=== PATIENT | female | born 1990 | race Asian ===

== ENCOUNTER 2017-11-21 15:37 | Emergency (ER) | payer OTHER ==
[2017-11-21 17:13] VITALS: BP 137/92
--- NOTE | 2017-11-21 17:39 | UC ---
UC General HPI - HPI Summary HPI Summary: 27 year old female presents with onset of profound fatigue yesterday. She works at [employer] and has had multiple tick bites this summer. Most recent was approximately 1 month ago and she states the tick was engorged at the time of removal. Associated with 4-5 days of nasal congestion and post- nasal drip. Also noticed a swollen lymph node a couple days ago. Denies fever, chills, chest pain, SOB, abdominal pain, urinary symptoms, flu-like illness, rash, myalgias, joint pain or swelling. - History of Current Complaint Chief Complaint: UCGeneralIllness Stated Complaint: TICK BITE Time Seen by Provider: 11/21/17 17:17 Hx Obtained From: Patient Hx Last Menstrual Period: 11/03/17 Onset/Duration: Sudden Onset, Lasting Days - 2 Current Severity: None Pain Intensity: 0 Associated Signs & Symptoms: Negative: Cough, Chest Pain, Dizziness, Diarrhea, Diaphoresis, Fever, Headache, Nausea, SOB, Vomiting, Other - rash - Allergy/Home Medications Allergies/Adverse Reactions: Allergies Allergy/AdvReac Type Severity Reaction Status Date / Time No Known Allergies Allergy Verified 11/21/17 17:13 PMH/Surg Hx/FS Hx/Imm Hx - Additional Past Medical History Additional PMH: Denies significant PMH Other History Of: Hepatitis B - She had this when she was born. She states that she is not chronic active. Negative For: HIV, Hepatitis C - Surgical History Surgical History: None - Family History Family History: Noncontributory - Social History Occupation: Employed Full-time Lives: With Family Alcohol Use: Occasionally Substance Use Type: None Smoking Status (MU): Never Smoked Tobacco Review of Systems Constitutional: Fatigue Skin: Negative Eyes: Negative ENT: Negative Respiratory: Negative Cardiovascular: Negative Gastrointestinal: Negative Genitourinary: Negative Musculoskeletal: Negative Is Patient Immunocompromised?: No All Other Systems Reviewed And Are Negative: Yes Physical Exam Triage Information Reviewed: Yes Appearance: Well-Appearing, No Pain Distress, Well-Nourished Vital Signs: Initial Vital Signs Temp 98.1 F 11/21/17 17:07 Pulse 70 11/21/17 17:07 Resp 16 11/21/17 17:07 BP 137/92 11/21/17 17:07 Pulse Ox 100 11/21/17 17:07 Eyes: Positive: Conjunctiva Clear. Negative: Discharge ENT: Positive: Nasal congestion, TMs normal, Uvula midline. Negative: Pharyngeal erythema, Nasal drainage, Tonsillar swelling, Tonsillar exudate, Sinus tenderness Neck: Positive: Supple, Nontender, No Lymphadenopathy Respiratory: Positive: Lungs clear, Normal breath sounds, No respiratory distress Cardiovascular: Positive: RRR, No Murmur Musculoskeletal Exam: Normal Skin Exam: Normal Course/Dx - Course Course Of Treatment: 27 yearl old female with onset of profound fatigue yesterday. Denies other symptoms. 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 Will test for Lyme and treat as needed. - Differential Dx - Multi-Symptom Provider Diagnoses: Fatigue Discharge - Sign-Out/Discharge Documenting (check all that apply): Patient Departure All imaging exams completed and their final reports reviewed: No Studies - Discharge Plan Condition: Stable Disposition: HOME Patient Education Materials: Tick Bite (ED), Fatigue (ED) Referrals: No Primary Care Phys,NOPCP [Primary Care Provider] - [facility] [place] [facility]FERRAL [Outside] Additional Instructions: We will test you for Lyme disease today since you have had significant exposure. If the test suggests an active infection we will get you treated. Fatigue is associated with a lot of conditions. If the Lyme test is negative and your symptoms persist you should follow up with a primary care provider for further evaluation. I have provided you with the number for the [facility] physician referral service to assist you with establishing with a primary care provider. - Billing Disposition and Condition Condition: STABLE Disposition: Home
== END 2017-11-21 18:00 | disposition home or self-care (01) ==
LOC: UCEAST 15:37
DX: R53.83 Other fatigue (principal)
CPT/HCPCS: 86618; 99211; G0463

== ENCOUNTER 2018-01-20 13:48 | Emergency (ER) | payer OTHER ==
[2018-01-20 14:08] VITALS: BP 121/80
--- NOTE | 2018-01-20 14:21 | UC ---
Respiratory Complaint HPI - HPI Summary HPI Summary: cough x 3 days cough is dry and harsh no nasal congestion , high fever, chills, mild body aches - History of Current Complaint Chief Complaint: UCRespiratory Stated Complaint: COUGH,FEVER,ST Time Seen by Provider: 01/20/18 14:09 Hx Obtained From: Patient Hx Last Menstrual Period: 11/03/17 ?: No Onset/Duration: Gradual Onset, Lasting Days - 3, Still Present Timing: Constant Severity Initially: Moderate Severity Currently: Moderate Pain Intensity: 0 Character: Cough: Nonproductive Aggravating Factors: Exertion, Deep Breaths Alleviating Factors: Nothing Associated Signs And Symptoms: Positive: Fever, Chills, URI, Nasal Congestion. Negative: Dyspnea, Pleuritic Chest Pain, Wheezing, Hemoptysis, Dizziness - Allergies/Home Medications Allergies/Adverse Reactions: Allergies Allergy/AdvReac Type Severity Reaction Status Date / Time No Known Allergies Allergy Verified 11/21/17 17:13 PMH/Surg Hx/FS Hx/Imm Hx Previously Healthy: Yes Other History Of: Hepatitis B - She had this when she was born. She states that she is not chronic active. Negative For: HIV, Hepatitis C - Surgical History Surgical History: None - Family History Known Family History: Positive: Unknown - She is adopted. Family History: Noncontributory - Social History Alcohol Use: Occasionally Substance Use Type: None Smoking Status (MU): Never Smoked Tobacco Review of Systems Constitutional: Fever, Chills Skin: Negative Eyes: Negative ENT: Nasal Discharge Respiratory: Cough Cardiovascular: Negative Is Patient Immunocompromised?: No All Other Systems Reviewed And Are Negative: Yes Physical Exam Triage Information Reviewed: Yes Appearance: Well-Appearing, No Pain Distress, Well-Nourished Vital Signs: Initial Vital Signs Temp 97.2 F 01/20/18 14:05 Pulse 79 01/20/18 14:05 Resp 16 01/20/18 14:05 BP 121/80 01/20/18 14:05 Pulse Ox 99 01/20/18 14:05 Vital Signs Reviewed: Yes Eye Exam: Normal Eyes: Positive: Conjunctiva Clear ENT Exam: Normal ENT: Positive: Normal ENT inspection, Hearing grossly normal, Pharynx normal Neck exam: Normal Neck: Positive: Supple, Nontender, No Lymphadenopathy Respiratory: Positive: Chest non-tender, Lungs clear, Normal breath sounds Cardiovascular: Positive: RRR, No Murmur, Pulses Normal Skin Exam: Normal UC Diagnostic Evaluation - Laboratory O2 Sat by Pulse Oximetry: 99 Respiratory Course/Dx - Differential Dx/Diagnosis Provider Diagnoses: uri Discharge - Sign-Out/Discharge Documenting (check all that apply): Patient Departure All imaging exams completed and their final reports reviewed: No Studies - Discharge Plan Condition: Stable Disposition: HOME Prescriptions: Codeine Phosphate/Guaifenesin [Cheratussin AC] 10 ml PO Q8H #120 ml MDD 30 ml Patient Education Materials: Upper Respiratory Infection (ED) Referrals: No Primary Care Phys,NOPCP [Primary Care Provider] - If Needed - Billing Disposition and Condition Condition: STABLE Disposition: Home
== END 2018-01-20 14:22 | disposition home or self-care (01) ==
LOC: UCCORT 13:48
DX: J06.9 Acute upper respiratory infection, unspecified (principal); B19.10 Unspecified viral hepatitis B without hepatic coma
CPT/HCPCS: 99211; G0463

== ENCOUNTER 2019-11-24 06:02 | Inpatient (IN) ==
[~2019-11-24 06:02] MED LIST: Buffered Lidocaine 1% SYRIN 1 ml INTRADERM ONE; Lactated Ringers 1000 ml BAG 1,000 ML IV SCH; Sodium Citrate/Citric Acid LIQ 15 ML UDC PO ONE
[2019-11-24] MEDS ORDERED: ceFOXitin 2 GM IVPREMIX 2 GM/50 ML BAG IVPB ONE (06:30)
[2019-11-24] MEDS ORDERED: Phenylephrine 40 mcg/mL 10mL (400mcg) SYRINGE ONE (07:06)
[2019-11-24] MEDS ORDERED: Morphine PF AMP (0.5MG/ML) 5 MG/10 ML AMP ONE (07:06)
[2019-11-24] MEDS ORDERED: fentaNYL 250 mcg/5 ml 50 MCG/ML 5 ml VIAL (250 MCG) ONE (07:06)
[2019-11-24 08:05] LABS: Urine Benzodiazepine Screen None Detected (None Detect); Urine Buprenorphine Screen None Detected (None Detect); Urine Cannabinoids Screen None Detected (None Detect); Urine Fentanyl Screen None Detected (None Detect); Urine Hydrocodone Screen None Detected (None Detect); Urine Opiates Screen None Detected (None Detect)
[2019-11-24] MEDS ORDERED: Ondansetron 4 mg VIAL 2 MG/ML 2 ml VIAL ONE (08:08)
[2019-11-24] MEDS ORDERED: Ondansetron 4 mg VIAL 2 MG/ML 2 ml VIAL IV PRN (08:42)
[2019-11-24] MEDS ORDERED: oxyCODONE/Acetamin 5/325 mg TAB PO PRN ×2 (08:42)
[2019-11-24] MEDS ORDERED: diPHENhydraMINE IV 50 MG/ML 1 ml VIAL (BENADRYL) IV PRN (08:42)
[2019-11-24] MEDS ORDERED: Naloxone 0.4 mg VIAL 0.4 mg/ml 1 ml VIAL IV PRN ×2 (08:42→08:45)
[2019-11-24] MEDS ORDERED: fentaNYL 100 mcg/2 ml 50 MCG/ML VIAL IV PRN (08:45)
[2019-11-24] MEDS ORDERED: Oxytocin 10 UNITS/ML 1 ML VIAL ONE (08:53)
[2019-11-24] MEDS ORDERED: Dibucaine 1% OINT 28.35 GM TUBE PR PRN (09:17)
[2019-11-24] MEDS ORDERED: Glycerin ADULT 2.4 gm SUPP PR PRN (09:17)
[2019-11-24] MEDS ORDERED: Witch Hazel PAD JAR TOPICAL PRN (09:17)
[2019-11-24] MEDS ORDERED: Lactated Ringers 1000 ml BAG 1,000 ML IV SCH (10:00)
[2019-11-24] MEDS ORDERED: Oxytocin in LR 20 UNITS/1,000 ML BAG IVPB SCH (10:00)
[2019-11-25 07:03] LABS: Hematocrit 30 % (35-47); Hemoglobin 10.3 g/dL (12.0-16.0); Mean Corpuscular HGB Conc 35 g/dL (31-36); Mean Corpuscular Hemoglobin 28 pg (27-31); Mean Corpuscular Volume 82 fL (80-97); Mean Platelet Volume 7.9 fL (7.4-10.4); Platelet Count 158 10^3/uL (150-450); Red Blood Count 3.64 10^6 /uL (3.70-4.87); Red Cell Distribution Width 14 % (10-15); White Blood Count 12.8 10^3/uL (3.5-10.8)
[2019-11-25 08:28] LABS: ABS Basophils 0.1 10^3/ul (0-0.2); ABS Eosinophils 0.1 10^3/ul (0-0.6); ABS Lymphocytes 1.7 10^3/ul (1.0-4.8); ABS Monocytes 0.6 10^3/ul (0-0.8); ABS Neutrophils 10.3 10^3/ul (1.5-7.7); Eosinophil % 0.6 %; Lymphocyte % 13.2 %
[2019-11-25] MEDS ORDERED: Influenza VAC *QUAD* 2020-21* 0.5 ML SYRINGE IM ONE (09:00)
[2019-11-27 13:04] VITALS: BP 101/71
== END 2019-11-27 13:36 | disposition home or self-care (01) | DRG 540 ==
LOC: MCHOB 06:02 → MERGE 07:30
PROVIDERS: ADMIT Obstetrics & Gynecology; ATTEND Obstetrics & Gynecology

== ENCOUNTER 2024-01-25 15:35 | Inpatient (IN) ==
[2024-01-25] MEDS ORDERED: Prochlorperazine 5 mg/ml 2 ml VIAL (10 mg) IV PRN (17:31)
[2024-01-25] MEDS ORDERED: Nalbuphine 10 MG/ML 1 ML VIAL IV PRN (17:31)
[2024-01-25] MEDS ORDERED: Buffered Lidocaine 1% SYRIN 1 ml INTRADERM ONE (17:31)
[2024-01-25 18:10] LABS: Hematocrit 34.7 % (35-45); Hemoglobin 11.4 g/dL (11.5-14.3); Mean Corpuscular Hemoglobin 26.1 pg (27-33); Mean Corpuscular Hgb Conc 32.8 g/dL (31-36); Mean Corpuscular Volume 79.4 fL (80-97); Mean Platelet Volume 8.2 fL (7.5-11.2); Platelet Count 259 10^3/uL (150-450); Red Blood Count 4.37 10^6/uL (3.63-4.92); Red Cell Distribution Width 14.4 % (12-17); White Blood Count 12.4 10^3/uL (3.8-11.8)
[2024-01-25 18:38] LABS: Urine Benzodiazepine Screen None Detected (None Detect); Urine Cannabinoids Screen None Detected (None Detect); Urine Opiates Screen None Detected (None Detect)
[2024-01-25 19:18] LABS: ABS Eosinophils 0.1 10^3/uL (0.0-0.5); ABS Lymphocytes 2.1 10^3/uL (1.0-4.8); ABS Monocytes 0.5 10^3/uL (0.0-0.9); ABS Neutrophils 9.7 10^3/uL (1.5-7.6); ABS Nucleated RBC 0.01 10^3/ul; Eosinophil % 0.5 %; Nucleated Red Blood Cells % 0.1 %/100WBC (0.0-0.8)
[2024-01-25] MEDS: Lactated Ringers 1000 ml BAG 1,000 ML IV ONE (20:56)
[2024-01-25] MEDS ORDERED: OBEPIDURAL (200 ML) 200 ML EPIDURAL ONE (22:06)
[2024-01-25] MEDS ORDERED: Lidocaine 1.5% EPI 1:200,000 30 ML SDV INJ ONE (22:07)
[2024-01-25] MEDS: Lactated Ringers 1000 ml BAG 1,000 ML IV SCH (22:17)
[2024-01-25] MEDS: OBEPIDURAL (200 ML) 200 ML EPIDURAL SCH (22:49)
[2024-01-25] MEDS ORDERED: Sodium Citrate/Citric Acid LIQ 15 ML UDC PO PRN (22:59)
[2024-01-25] MEDS ORDERED: Phenylephrine 40 mcg/mL 10mL (400mcg) SYRINGE IV PUSH PRN ×2 (22:59)
[2024-01-26 01:03] LABS: Urine Appearance Clear; Urine Bilirubin Negative (Negative); Urine Blood Trace (Negative); Urine Color Yellow; Urine Glucose Negative (Negative); Urine Ketones 2+ (Negative); Urine Nitrite Negative (Negative); Urine Protein Trace (Negative); Urine Specific Gravity 1.022 (1.002-1.030); Urine Urobilinogen Negative (Negative); Urine pH 6.5 (5.0-8.0)
[2024-01-26] MEDS: D5W 1/2 NS KCl 20 meq 1000 ml 1,000 ML IV SCH (02:44)
[2024-01-26] MEDS: Oxytocin in LR 20,000 MILLI.UNIT/1,000 ML BAG IV ONE (08:17)
[2024-01-26] MEDS ORDERED: Oxytocin in LR 20,000 MILLI.UNIT/1,000 ML BAG IV SCH (08:25)
[2024-01-26] MEDS: Lidocaine 1% VIAL 10 MG/ML 30 ML VIAL INJ PRN (11:45)
[2024-01-26] MEDS ORDERED: Methylergonovine 0.2 mg AMPULE 1 ml AMP ONE (12:04)
[2024-01-26] MEDS: Methylergonovine 0.2 mg AMPULE 1 ml AMP IM ONE (12:06)
[2024-01-26] MEDS ORDERED: Glycerin ADULT 2.4 gm SUPP PR PRN (12:19)
[2024-01-26] MEDS: Lactated Ringers 1000 ml BAG 1,000 ML IV SCH ×2 (13:00→17:25)
[2024-01-26] MEDS: Witch Hazel PAD JAR TOPICAL PRN (14:41)
[2024-01-26] MEDS: Dibucaine 1% OINT 28.35 GM TUBE PR PRN (14:41)
[2024-01-26] MEDS: Oxytocin in LR 20,000 MILLI.UNIT/1,000 ML BAG IV SCH (15:04)
[2024-01-26] MEDS ORDERED: ceFAZolin VIAL 2 GM in NS 0.9% 100 ml BAG 100 ML IVPB ONE (17:03)
[2024-01-26] MEDS: Lactated Ringers 1000 ml BAG 1,000 ML IV ONE (17:24)
[2024-01-26] MEDS: Calcium (OSCAL) 500 mg TAB PO SCH (17:24)
[2024-01-26 21:28] LABS: Hemoglobin 8.3 g/dL (11.5-14.3)
[2024-01-27 06:50] LABS: Hematocrit 23.9 % (35-45); Mean Corpuscular Hemoglobin 26.6 pg (27-33); Mean Corpuscular Hgb Conc 33.5 g/dL (31-36); Mean Corpuscular Volume 79.6 fL (80-97); Mean Platelet Volume 7.7 fL (7.5-11.2); Platelet Count 187 10^3/uL (150-450); Red Cell Distribution Width 14.6 % (12-17); White Blood Count 20.1 10^3/uL (3.8-11.8)
[2024-01-27 08:06] VITALS: BP 96/60
[2024-01-27 08:34] LABS: ABS Basophils 0.2 10^3/uL (0.0-0.1); ABS Eosinophils 0.1 10^3/uL (0.0-0.5); ABS Lymphocytes 2.2 10^3/uL (1.0-4.8); ABS Monocytes 0.9 10^3/uL (0.0-0.9); ABS Neutrophils 16.7 10^3/uL (1.5-7.6); ABS Nucleated RBC 0.03 10^3/ul; Eosinophil % 0.3 %; Lymphocyte % 10.8 %; Microcytosis 1+; Nucleated Red Blood Cells % 0.1 %/100WBC (0.0-0.8); Polychromasia 1+
[2024-01-27] MEDS: Iron Sucrose 200 MG in NS 0.9% 100 ml BAG 100 ML IVPB ONE (12:14)
[2024-01-27] MEDS: COVID VAC 24-25 (12+) (Moderna) Syringe 0.5 mL IM ONE (14:13)
== END 2024-01-27 15:55 | disposition home or self-care (01) | DRG 560 ==
LOC: MCHOBOUT 15:35 → MCHOB 17:11
PROVIDERS: ADMIT Obstetrics & Gynecology; ATTEND Obstetrics & Gynecology

== ENCOUNTER 2024-02-04 18:42 | Inpatient (IN) ==
[2024-02-04] MEDS: Lactated Ringers SEPSIS* BAG 1,500 ML IV ONE (19:32)
[2024-02-04 19:37] LABS: Hematocrit 29.8 % (35-45); Hemoglobin 9.9 g/dL (11.5-14.3); Mean Corpuscular Hemoglobin 27.3 pg (27-33); Mean Corpuscular Hgb Conc 33.1 g/dL (31-36); Mean Corpuscular Volume 82.4 fL (80-97); Platelet Count 449 10^3/uL (150-450); Red Blood Count 3.61 10^6/uL (3.63-4.92); White Blood Count 14.5 10^3/uL (3.8-11.8)
[2024-02-04 19:49] LABS: Activated Partial Thrombo Time 32.8 seconds (26.0-38.0)
[2024-02-04 20:22] LABS: Albumin 3.8 g/dL (3.2-5.2); Albumin/Globulin Ratio 1.5 (1-3); Calcium 7.2 mg/dL (8.6-10.3); Creatinine, Serum 0.53 mg/dL (0.51-0.95); Globulin 2.5 g/dL (2-4); Potassium 4.1 mmol/L (3.5-5.0); Total Bilirubin 0.9 mg/dL (0.2-1.0); Total Protein 6.3 g/dL (6.4-8.9); eGFR CKD-EPI 125.9 (>60)
[2024-02-04] MEDS: Piperacillin/Tazobac 3.375 BAG 3.375 GM/100 ML BAG IV ONE (20:30)
[2024-02-04 20:55] LABS: Anisocytosis 1+; Polychromasia 1+
[2024-02-04 20:56] LABS: ABS Basophils 0.1 10^3/uL (0.0-0.1); ABS Eosinophils 0.2 10^3/uL (0.0-0.5); ABS Lymphocytes 1.3 10^3/uL (1.0-4.8); ABS Monocytes 0.5 10^3/uL (0.0-0.9); ABS Neutrophils 12.4 10^3/uL (1.5-7.6); ABS Nucleated RBC 0.03 10^3/ul; Eosinophil % 1.5 %; Lymphocyte % 9.2 %; Nucleated Red Blood Cells % 0.2 %/100WBC (0.0-0.8)
[2024-02-04 21:12] LABS: High Sensitivity Troponin 1 Hr 5 pg/mL (<15)
[2024-02-04] MEDS: Vancomycin 1,000 MG in NS 0.9% 250 ml 250 ML IVPB ONE (21:50)
[2024-02-04 22:15] LABS: Urine Appearance Turbid; Urine Bilirubin Negative (Negative); Urine Blood 3+ (Negative); Urine Color Colorless; Urine Glucose Negative (Negative); Urine Ketones Negative (Negative); Urine Nitrite Negative (Negative); Urine Protein Negative (Negative); Urine Specific Gravity 1.008 (1.002-1.030); Urine Urobilinogen Negative (Negative)
[2024-02-04 22:39] LABS: Urine Amorphous Crystals Present /HPF (Absent); Urine Bacteria 1+ /HPF (Absent); Urine Red Blood Cell 3+(>10/hpf) /HPF (0-Trace); Urine Squamous Epithelial Cell Present /HPF (Absent); Urine White Blood Cell 3+(>20/hpf) /HPF (0-Trace)
[2024-02-04] MEDS: Iohexol 350 (CONTRAST) 500 ML MDV IV ONE (23:15)
[2024-02-05 01:47] LABS: Hematocrit 21.7 % (35-45); Hemoglobin 7.2 g/dL (11.5-14.3); Mean Corpuscular Hemoglobin 27.6 pg (27-33); Mean Corpuscular Volume 83.9 fL (80-97); Mean Platelet Volume 6.8 fL (7.5-11.2); Platelet Count 320 10^3/uL (150-450); Red Blood Count 2.59 10^6/uL (3.63-4.92); Red Cell Distribution Width 16.9 % (12-17); White Blood Count 9.3 10^3/uL (3.8-11.8)
[2024-02-05] MEDS: Ampicillin ADVAN 2 GM in NS 0.9% 100 ml BAG 100 ML IVPB SCH ×2 (01:50→21:16)
[2024-02-05] MEDS: metroNIDAZOLE IV 500 MG/100ML 500 MG/100 ML BAG IVPB SCH ×2 (02:01→17:14)
[2024-02-05] MEDS: Gentamicin ADULT 375 MG in NS 0.9% 100 ml BAG 100 ML IVPB SCH (03:00)
[2024-02-05 03:11] LABS: ABS Basophils 0.1 10^3/uL (0.0-0.1); ABS Eosinophils 0.1 10^3/uL (0.0-0.5); ABS Monocytes 0.5 10^3/uL (0.0-0.9); ABS Neutrophils 7.7 10^3/uL (1.5-7.6); ABS Nucleated RBC 0.02 10^3/ul; Eosinophil % 0.6 %; Lymphocyte % 11.2 %; Nucleated Red Blood Cells % 0.2 %/100WBC (0.0-0.8)
[2024-02-06] MEDS: Gentamicin ADULT 300 MG in NS 0.9% 100 ml BAG 100 ML IVPB SCH ×2 (00:35→03:35)
[2024-02-06 06:03] LABS: Hematocrit 26.2 % (35-45); Hemoglobin 8.7 g/dL (11.5-14.3); Mean Corpuscular Hemoglobin 27.2 pg (27-33); Mean Corpuscular Hgb Conc 33.1 g/dL (31-36); Mean Corpuscular Volume 82.2 fL (80-97); Mean Platelet Volume 6.6 fL (7.5-11.2); Platelet Count 335 10^3/uL (150-450); Red Blood Count 3.19 10^6/uL (3.63-4.92); Red Cell Distribution Width 17.3 % (12-17); White Blood Count 8.9 10^3/uL (3.8-11.8)
[2024-02-06 10:13] LABS: ABS Basophils 0.1 10^3/uL (0.0-0.1); ABS Eosinophils 0.2 10^3/uL (0.0-0.5); ABS Lymphocytes 1.3 10^3/uL (1.0-4.8); ABS Monocytes 0.5 10^3/uL (0.0-0.9); ABS Neutrophils 6.7 10^3/uL (1.5-7.6); ABS Nucleated RBC 0.01 10^3/ul; Eosinophil % 2.8 %; Lymphocyte % 14.6 %; Nucleated Red Blood Cells % 0.1 %/100WBC (0.0-0.8)
[2024-02-07 09:36] VITALS: BP 110/81
[2024-02-07] MEDS ORDERED: Amoxicillin/Clavul 875/125 TAB (Augmentin 875 tab) PO SCH (11:00)
== END 2024-02-07 10:40 | disposition home or self-care (01) | DRG 561 ==
LOC: ED 18:42 → EDHOLD 02-05 00:47 → SSU 02-05 12:55
PROVIDERS: ADMIT Obstetrics & Gynecology; ATTEND Obstetrics & Gynecology